=== PATIENT | female | born 1975 | race Asian ===

== ENCOUNTER → 2016-08-21 | Outpatient (CLI) | payer OTHER ==
[~2016-08-21] MED LIST: PREN1TAB22 PO; PRENATAL VITS.; PROG50VI3 IM
== END | disposition home or self-care (01) ==
LOC: EMPHLTH 10:53
PROVIDERS: ATTEND Internal Medicine
DX: R76.11 Nonspecific reaction to tuberculin skin test without active tuberculosis (principal)

== ENCOUNTER 2017-10-09 12:51 | Emergency (ER) | payer OTHER ==
[~2017-10-09] VITALS: Ht 157.5 cm; Wt 53.2 kg
[2017-10-09] MEDS ORDERED: IBUPROFEN 800 MG TABLET PO ONE (13:15)
[2017-10-09 14:07] VITALS: BP 138/76
== END 2017-10-09 14:45 | disposition home or self-care (01) ==
LOC: EMS 12:53
DX: S60.051A Contusion of right little finger without damage to nail, initial encounter (principal); W23.0XXA Caught, crushed, jammed, or pinched between moving objects, initial encounter; Y93.89 Activity, other specified; Y92.89 Other specified places as the place of occurrence of the external cause; Y99.8 Other external cause status
CPT/HCPCS: 99284